=== PATIENT | female | born 1935 | race Caucasian/White ===

== ENCOUNTER 2016-07-15 22:34 | Emergency (ER) | payer MEDICARE ==
[~2016-07-15] VITALS: Ht 172.7 cm; Wt 84.1 kg
[~2016-07-15 22:34] MED LIST: CHOL200049 PO; FLAX100031 PO; FURO20TA PO; LANS15CA24 PO; RES15 PO; TUMS PO; VIT1CAPS46 PO
[2016-07-15 22:37] VITALS: BP 192/98; PULSE 85; RESP 18; O2SAT 98
[2016-07-16 00:09] VITALS: BP 222/69
[2016-07-16 00:48] LABS: BASOPHILS % (AUTO) 0.7 % (0-3); EOSINOPHILS % (AUTO) 2.2 % (0-5); MONOCYTES % (AUTO) 10.9 % (4-12); Mean Corpuscular Hemoglobin 29.4 pg (27.0-35.0); Mean Corpuscular Volume 86.1 fL (81-100); NEUTROPHILS % (AUTO) 63.1 % (40-74); Platelet Count 302 bil/L (150-400)
--- NOTE | 2016-07-16 01:12 | ED.REPORT ---
HPI-General Illness Date of Service July 16, 2016 ED Provider: Jermain Gómez MD An 81 year old female with a medical history including hypertension, diverticulitis, SBO, and renal cell carcinoma presents to the ED with a headache onset one week ago, worsening today. The patient also reports hypertension (192/98 in ED) noticed this evening. She denies chest pain or other symptoms. The patient has had similar symptoms in the past. Nursing Notes Stated Complaint: HIGH BLOOD PRESSURE Chief Complaint: Dysrhythmia/Cardiac Nursing Notes Reviewed: Yes Allergies: Coded Allergies: lisinopril (Verified Allergy, Mild, COUGH, 07/15/16) Scheduled CHOLECALCIFEROL-Expunged Drug, Do Not Renew! (VITAMIN I-5-Hrpswqgf Drug, Do Not Renew!) 2,000 Unit Tablet 2,000 UNIT PO AM Calcium Carbonate-Expunged Drug, Do Not Renew (Tums Chewable-Expunged Drug, Do Not Renew!) 500 Mg Tablet 500 MG PO QID Flaxseed Oil (Flax Seed Oil) 1,000 Mg Capsule 1,400 MG PO AM Furosemide-Expunged Drug, Do Not Renew! (Furosemide-Expunged Drug, Do Not Renew! ) 20 Mg Tablet 20 MG PO AM Lansoprazole-Expunged Drug, Do Not Renew! (Lansoprazole-Expunged Drug, Do Not Renew!) 15 Mg Capsule.dr MG PO BID Temazepam-Expunged Drug, Do Not Renew! (Restoril-Expunged Drug, Do Not Renew!) 15 Mg Cap 15 MG PO HS Vit C/E/Zn/Coppr/Lutein/Zeaxan (Preservision Areds 2 Softgel) 1 Each Capsule 1 EACH PO BID Scheduled PRN Metoprolol Tartrate (Metoprolol Tartrate) 25 Mg Tablet 25 MG PO BID PRN PRN 30 General Time Seen by MD: 01:11 Chief Complaint Headache Hx Obtained From: Patient Arrived By: Walk-in Sudden in Onset?: Yes Onset Occurred: 1 week ago Symptom Duration: Since onset Location: : Head Quality: Painful Severity: Current: Moderate Severity: Maximum: Moderate Pertinent Negative: Relieved by nothing Context Related History: Reports Cancer Recent Healthcare: No recent doctor visit Similar Sx Previous: Yes Past Medical History Past Medical History 1. Renal cell carcinoma. 2. Diverticulitis. 3. Endometriosis. 4. Cholecystitis. 5. Hypertension. 6. SBO Past Surgical History Multiple abdominal surgeries Hysterectomy Sigmoid resection Social History Other Social History: Good social support Occupation Retired radiologist Ambulatory Status Independent Review of Systems + Hypertension (192/98 in ED) Full Review of Systems Constitutional: Denies: Fever Respiratory: Denies: Non-productive cough, Shortness of breath Cardiovascular: Denies: Chest pain GI: Denies: Diarrhea, Vomiting Neurologic: Reports: Headache Complete sys rev & neg: except as marked. Physical Exam Vital Signs Vital Signs Date Time Temp Pulse Resp B/P Pulse Ox O2 Delivery O2 Flow Rate FiO2 07/16/16 04:05 35.9 63 21 165/63 95 Room Air 07/16/16 03:54 63 21 165/63 95 Room Air 07/16/16 03:07 62 15 185/70 96 Room Air 07/16/16 01:16 85 14 185/84 96 Room Air 07/16/16 00:09 222/69 07/15/16 22:37 35.9 85 18 192/98 98 Room Air Initial VS: Reviewed, Vital signs abnormal Head / Eyes: Atraumatic, Normocephalic ENT: Conjunctiva normal, No scleral icterus Skin: Warm, Dry Psychiatric: Mood/affect normal, Behavior normal, Normal thought content General/Constitutional: Awake, Alert Neck: Supple, Full range of motion, No JVD Respiratory / Chest: Breath sounds NL, Breath sounds = bilat, No respiratory distress Cardiovascular: Heart rate NL, Regular rhythm, Heart sounds NL Lower Extremity / Pelvis / MS: Full range of motion, Non-tender, No edema Neurologic: Oriented X3, Speech NL, CN II - XII intact Interpretation & Diagnostics Lab Results Interpretation Result Diagram: 07/16/16 0005 07/16/16 0005 Test 07/16/16 00:05 White Blood Count 4.6th/mm3 (3.8-10.1) Red Blood Count 4.66mil/mm3 (3.90-5.20) Hemoglobin 13.7g/dL (12.0-15.6) Hematocrit 40.1% (35.0-46.0) Mean Corpuscular Volume 86.1fL (81-100) Mean Corpuscular Hemoglobin 29.4pg (27.0-35.0) Mean Corpuscular Hemoglobin Concent 34.2% (32.0-37.0) Red Cell Distribution Width 12.3% (12.3-15.4) Platelet Count 302bil/L (150-400) Neutrophils (%) (Auto) 63.1% (40-74) Lymphocytes (%) (Auto) 22.9% (14-46) Monocytes (%) (Auto) 10.9% (4-12) Eosinophils (%) (Auto) 2.2% (0-5) Basophils (%) (Auto) 0.7% (0-3) Sodium Level 132mEq/L (134-144) Potassium Level 3.6mEq/L (3.5-5.2) Chloride Level 90mEq/L (97-108) Carbon Dioxide Level 28mmol/L (18-29) Blood Urea Nitrogen 11mg/dL (8-27) Creatinine 0.54mg/dL (0.57-1.00) Estimat Glomerular Filtration Rate 155mL/min (>59) Glucose Level 109mg/dL (60-99) Calcium Level 10.0mg/dL (8.5-10.1) Magnesium Level 1.9mg/dL (1.6-2.6) Total Bilirubin 0.7mg/dL (0.0-1.2) Aspartate Amino Transf (AST/SGOT) 18U/L (0-50) Alanine Aminotransferase (ALT/SGPT) 10U/L (0-32) Alkaline Phosphatase 79U/L (25-165) Troponin T 0.010ug/L (0.0-0.011) Pro-B-Type Natriuretic Peptide 85.98pg/mL (0-738) Total Protein 7.2g/dL (6.4-8.4) Albumin 4.5g/dL (3.4-5.0) Lab values outside NL range: no clinical significance. 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 We discussed the need to rule out subarachnoid hemorrhage or other intracranial abnormalities because of her severe headache. She declined this evaluation. Her blood pressure normalized somewhat without treatment. She was then given metoprolol 25 mg with marked improvement of have her blood pressure and her headache. She will be discharged home on the same. She was given instructions to return if she had increased BP or headache. Source of Hx: Old records Time of Eval: 03:50 Patient Status: Condition improved Re-Evaluation/Progress Note: Discussed with patient lab results, diagnosis, and plan for discharge. Follow-up and return to the ER instructions given. Patient agrees with plan for care and all questions were addressed. Counseled Regarding: Diagnosis, Lab results, Need for follow-up, When/why to return to ED Discharge & Departure Primary Impression: Labile hypertension Additional Impression: Headache Headache type: unspecified Headache chronicity pattern: acute headache Intractability: intractable Qualified Code: R51 - Headache Disposition: Home Discharge Condition All VS Reviewed: Yes Condition: Improved Patient Instructions: Acute Headache (ED), Chronic Hypertension (ED) Additional Instructions: Your blood pressure was quite I and is likely the causing her headache. As we discussed urine at high risk for leading into the brain. If the headache worsens or persists to really need to get the MRI done. I have given your prescription for metoprolol 25 mg daily. This is a low starting dose and can be moved up if necessary. Check your blood pressure every day or 2 and The results to your doctor. Take the Metoprolol as prescribed. Check your blood pressures regularly to ensure it does not go to low. Follow-up with your regular doctor this week. Return to the ER with any new or worsening symptoms including persistent headache. Referrals: Christos Byrd MD (PCP) Scribe Attestation Portions of this note were transcribed by Deana Wallace. I, Dr. Gómez, personally performed the history, physical exam, and medical decision-making; I reviewed and confirmed the accuracy of the information in the transcribed note. Signed by: Eliel Nice, 07/16/2016, 05:00 copies to: Christos Byrd MD, Howard L MD July 16, 2016 01:12 DEANA WALLACE July 16, 2016 01:21
[2016-07-16 01:15] LABS: Magnesium 1.9 mg/dL (1.6-2.6); TROPONIN T 0.01 ug/L (0.0-0.011)
[2016-07-16 01:16] VITALS: BP 185/84; PULSE 85; RESP 14; O2SAT 96
[2016-07-16 03:07] VITALS: BP 185/70; PULSE 62; RESP 15; O2SAT 96
[2016-07-16 03:54] VITALS: BP 165/63; PULSE 63; RESP 21; O2SAT 95
[2016-07-16] MEDS ORDERED: METO25TA6 PO (03:59)
[2016-07-16 04:05] VITALS: BP 165/63; PULSE 63; RESP 21; O2SAT 95
== END 2016-07-16 04:05 | disposition home or self-care (01) ==
LOC: SED 22:34
DX: I10 Essential (primary) hypertension (principal); R51 Headache; Z88.8 Allergy status to other drugs, medicaments and biological substances